=== PATIENT | female | born 1965 | race Caucasian/White ===

== ENCOUNTER 2017-05-30 16:50 | Emergency (ER) | payer MEDICAID ==
[~2017-05-30] VITALS: Ht 162.6 cm; Wt 102.1 kg
[~2017-05-30 16:50] MED LIST: ALBUPOW26; SOMA
[2017-05-30 17:05] VITALS: BP 166/91
[2017-05-30] MEDS ORDERED: IPRATROPIUM BROM 0.5 MG/2.5ML INH SOL NEB ONE (17:30)
[2017-05-30] MEDS ORDERED: ALBUTEROL SULF 2.5 MG/0.5ML(0.5%) NEB SOLN NEB ONE (17:30)
[2017-05-30 17:48] LABS: Basophils # (auto) 0 uL; Basophils % (auto) 0.7 % (0.0-2.0); Eosinophils # (auto) 0.3 uL; Eosinophils % (auto) 4.5 % (0.0-7.0); Hematocrit 42.5 % (36.0-46.0); Hemoglobin 14.9 g/dL (12.2-16.2); Lymphocytes # (auto) 2.1 uL; Lymphocytes % (auto) 34.9 % (10.0-50.0); Mean Corpuscular Hgb Conc. 35.1 g/dL (32.0-36.0); Mean Corpuscular Volume 88.4 fL (80.0-100.0); Monocytes # (auto) 0.4 uL; Monocytes % (auto) 5.8 % (0.0-12.0); Neutrophils # (auto) 3.3 uL; Neutrophils % (auto) 54.1 % (37.0-80.0); Nucleated Red Blood Cells % 0.1 %; Platelet Count (auto) 246 10^3/uL (140-450); Red Cell Distribution Width 13.8 % (11.6-16.0); White Blood Cell 6.1 10^3/uL (4.4-10.8)
[2017-05-30 18:13] LABS: Albumin 3.8 g/dL (3.4-5.0); BUN/Creatinine Ratio 15.5; Calcium 8.4 mg/dL (8.5-10.1); Potassium 3.7 mmol/L (3.5-5.1)
[2017-05-30 18:16] LABS: Bilirubin, Total 0.3 mg/dL (0.2-1.0); Total Protein 7.3 g/dL (6.4-8.2)
== END 2017-05-30 18:25 | disposition left against medical advice (07) ==
LOC: ER 16:54
DX: M79.671 Pain in right foot (principal); Z53.21 Procedure and treatment not carried out due to patient leaving prior to being seen by health care provider
CPT/HCPCS: 36415; 80053; 85025; 93005; 94640; J7030

== ENCOUNTER 2019-09-04 02:28 | Emergency (ER) | payer MEDICAID ==
[~2019-09-04] VITALS: Ht 162.6 cm; Wt 97.5 kg
[2019-09-04 02:42] VITALS: BP 137/93
[2019-09-04] MEDS ORDERED: ALBUTEROL SULF 2.5 MG/0.5ML(0.5%) NEB SOLN NEB ONE (04:15)
[2019-09-04] MEDS ORDERED: IPRATROPIUM BROM 0.5 MG/2.5ML INH SOL NEB ONE (04:15)
[2019-09-04] MEDS ORDERED: hydrOXYzine 25 MG TAB or CAP PO ONE (04:15)
== END 2019-09-04 05:27 | disposition home or self-care (01) ==
LOC: ER 02:33
DX: J45.909 Unspecified asthma, uncomplicated (principal); F41.8 Other specified anxiety disorders; F17.210 Nicotine dependence, cigarettes, uncomplicated; Z79.899 Other long term (current) drug therapy
CPT/HCPCS: 82962; 94640; 99283; J7611; J7644

== ENCOUNTER 2022-10-15 02:35 | Inpatient (IN) | payer MEDICAID ==
[~2022-10-15] VITALS: Ht 162.6 cm; Wt 97.7 kg
[2022-10-15 03:05] LABS: Basophils # (auto) 0.1 10 ^3/uL (0-0.2); Basophils % (auto) 0.5 % (0.0-2.0); Eosinophils # (auto) 0 10 ^3/uL (0-0.8); Eosinophils % (auto) 0.1 % (0.0-7.0); Hematocrit 41.7 % (36.0-46.0); Hemoglobin 13.7 g/dL (12.2-16.2); Lymphocytes # (auto) 1.2 10 ^3/uL (0.4-5.4); Mean Corpuscular Hemoglobin 27.9 pg (28.0-32.0); Mean Corpuscular Hgb Conc. 32.9 g/dL (32.0-36.0); Monocytes # (auto) 0.8 10 ^3/uL (0-1.3); Monocytes % (auto) 3.6 % (0.0-12.0); Neutrophils # (auto) 21.1 10 ^3/uL (1.6-8.6); Neutrophils % (auto) 90.8 % (37.0-80.0); Red Blood Cells 4.91 10^6/uL (4.0-5.20); Red Cell Distribution Width 13.5 % (11.8-14.3); White Blood Cell 23.2 10^3/uL (4.4-10.8)
[2022-10-15 03:21] LABS: Albumin 3.1 g/dL (3.4-5.0); BUN/Creatinine Ratio 12.5; Calcium 9.1 mg/dL (8.5-10.1); INR 0.97 (0.9-1.15); Magnesium 1.9 mg/dL (1.6-2.6); Potassium 3.8 mmol/L (3.5-5.1)
[2022-10-15 03:23] LABS: Bilirubin, Total 0.4 mg/dL (0.2-1.0); Total Protein 7.7 g/dL (6.4-8.2)
[2022-10-15] MEDS ORDERED: cefTRIAXone 1GM/50ML D5W 50 ML IV ONE (06:45)
[2022-10-15] MEDS ORDERED: AZITHROMYCIN 500MG/ 250ML 250 ML IV ONE (06:45)
[2022-10-15] MEDS ORDERED: SODIUM CHLORIDE 0.9% 1,000 ML IV ONE (11:15)
[2022-10-15] MEDS ORDERED: NITROGLYCERIN 0.4 MG SL TAB SL PRN (11:15)
[2022-10-15] MEDS: SODIUM CHLORIDE 0.9% 1,000 ML IV SCH ×2 (11:55→21:15)
[2022-10-15] MEDS: MORPHINE SULFATE 4 MG/ML SYR/VIAL IV PRN ×2 (13:24→18:06)
[2022-10-15] MEDS: metroNIDAZOLE 500MG/100ML 100 ML IV SCH ×2 (14:10→21:45)
[2022-10-15] MEDS: ONDANSETRON HCL 4 MG/2 ML VIAL IV PRN (15:11)
[2022-10-15 15:48] LABS: Urine Bacteria FEW /hpf (None Seen); Urine Blood Negative /uL (Negative); Urine Hyaline Cast MOD /lpf (0 - 2); Urine Mucus FEW (None Seen); Urine Specific Gravity 1.024 (1.001-1.035); Urine WBC 169 /hpf (0 - 5)
[2022-10-15] MEDS: ACETAMINOPHEN 325 MG TAB PO PRN (19:20)
[2022-10-15] MEDS: ATORVASTATIN 20 MG TAB PO SCH (21:44)
[2022-10-15] MEDS: METOPROLOL TARTRATE 25 MG TAB PO SCH (21:45)
[2022-10-16] MEDS: ACETAMINOPHEN 325 MG TAB PO PRN ×2 (00:50→10:49)
[2022-10-16] MEDS: MORPHINE SULFATE 4 MG/ML SYR/VIAL IV PRN (02:30)
[2022-10-16 05:13] LABS: Basophils # (auto) 0.1 10 ^3/uL (0-0.2); Basophils % (auto) 0.2 % (0.0-2.0); Eosinophils # (auto) 0 10 ^3/uL (0-0.8); Eosinophils % (auto) 0.1 % (0.0-7.0); Hematocrit 33.8 % (36.0-46.0); Hemoglobin 11.4 g/dL (12.2-16.2); Lymphocytes # (auto) 1.1 10 ^3/uL (0.4-5.4); Lymphocytes % (auto) 4.8 % (10.0-50.0); Mean Corpuscular Hemoglobin 28.7 pg (28.0-32.0); Mean Corpuscular Hgb Conc. 33.7 g/dL (32.0-36.0); Mean Corpuscular Volume 85.1 fL (80.0-100.0); Monocytes % (auto) 4.5 % (0.0-12.0); Neutrophils # (auto) 20.6 10 ^3/uL (1.6-8.6); Neutrophils % (auto) 90.4 % (37.0-80.0); Red Blood Cells 3.97 10^6/uL (4.0-5.20); Red Cell Distribution Width 13.4 % (11.8-14.3); White Blood Cell 22.8 10^3/uL (4.4-10.8)
[2022-10-16 05:38] LABS: Albumin 2.7 g/dL (3.4-5.0); Calcium 8.3 mg/dL (8.5-10.1); Potassium 4.3 mmol/L (3.5-5.1)
[2022-10-16 05:42] LABS: BUN/Creatinine Ratio 19.2; Bilirubin, Total 0.6 mg/dL (0.2-1.0); Total Protein 6.4 g/dL (6.4-8.2)
[2022-10-16] MEDS: metroNIDAZOLE 500MG/100ML 100 ML IV SCH ×3 (06:20→22:00)
[2022-10-16] MEDS: METOPROLOL TARTRATE 25 MG TAB PO SCH ×3 (10:00→22:00)
[2022-10-16] MEDS: SODIUM CHLORIDE 0.9% 1,000 ML IV SCH (10:50)
[2022-10-16] MEDS: ASPirin 81 mg TAB PO SCH (10:50)
[2022-10-16] MEDS: PANTOPRAZOLE 40 MG/10 ML VIAL INJ IV SCH (11:06)
[2022-10-16] MEDS: DOCUSATE SOD 100 MG CAP PO SCH (11:06)
[2022-10-16] MEDS ORDERED: OMNIPAQUE ORAL SOLN 500ml 12mg/ml PO ONE (14:38)
[2022-10-16] MEDS ORDERED: GASTROGRAFIN 30 ML SOL ONE (15:14)
[2022-10-16 15:16] VITALS: BP 117/69
[2022-10-16] MEDS: D5W/SOD CHLO 0.9% 1,000 ML IV SCH ×2 (16:22→22:30)
[2022-10-16] MEDS: ONDANSETRON HCL 4 MG/2 ML VIAL IV PRN (16:22)
[2022-10-16] MEDS: MORPHINE SULFATE INJ 2 MG/ml SYRG IV PRN ×2 (16:24→22:46)
[2022-10-16] MEDS ORDERED: ALBUTEROL MEDNEB 2.5 mg/3ml NEB ONE (18:07)
[2022-10-16] MEDS: ALBUTEROL SULF 2.5 MG/0.5ML(0.5%) NEB SOLN NEB SCH (19:21)
[2022-10-16] MEDS ORDERED: IOHEXOL 300 MG/ML 100ML BOTTLE IJ ONE (21:27)
[2022-10-16 22:00] VITALS: BP 126/79
[2022-10-16] MEDS: ATORVASTATIN 20 MG TAB PO SCH (22:00)
[2022-10-17 00:05] VITALS: BP 126/79
[2022-10-17 05:00] VITALS: BP 117/65
[2022-10-17] MEDS ORDERED: ALBUTEROL MEDNEB 2.5 mg/3ml NEB ONE ×3 (05:23→17:54)
[2022-10-17] MEDS: D5W/SOD CHLO 0.9% 1,000 ML IV SCH ×3 (05:49→22:30)
[2022-10-17] MEDS: metroNIDAZOLE 500MG/100ML 100 ML IV SCH ×3 (05:50→22:00)
[2022-10-17 06:18] LABS: Basophils # (auto) 0 10 ^3/uL (0-0.2); Basophils % (auto) 0.2 % (0.0-2.0); Eosinophils # (auto) 0.1 10 ^3/uL (0-0.8); Eosinophils % (auto) 0.3 % (0.0-7.0); Hematocrit 30.7 % (36.0-46.0); Hemoglobin 10.2 g/dL (12.2-16.2); Lymphocytes # (auto) 1.1 10 ^3/uL (0.4-5.4); Mean Corpuscular Hemoglobin 28.3 pg (28.0-32.0); Mean Corpuscular Hgb Conc. 33.1 g/dL (32.0-36.0); Mean Corpuscular Volume 85.7 fL (80.0-100.0); Monocytes # (auto) 0.8 10 ^3/uL (0-1.3); Neutrophils # (auto) 16.9 10 ^3/uL (1.6-8.6); Neutrophils % (auto) 89.5 % (37.0-80.0); Nucleated Red Blood Cells % 0.1 %; Red Blood Cells 3.59 10^6/uL (4.0-5.20); Red Cell Distribution Width 13.4 % (11.8-14.3); White Blood Cell 18.9 10^3/uL (4.4-10.8)
[2022-10-17] MEDS: ALBUTEROL SULF 2.5 MG/0.5ML(0.5%) NEB SOLN NEB SCH ×3 (06:19→18:12)
[2022-10-17 06:34] LABS: Albumin 2.4 g/dL (3.4-5.0); BUN/Creatinine Ratio 20.3; Bilirubin, Total 0.7 mg/dL (0.2-1.0); Calcium 8.4 mg/dL (8.5-10.1); Total Protein 6.6 g/dL (6.4-8.2)
[2022-10-17 08:00] VITALS: BP 94/44
[2022-10-17] MEDS: ASPirin 81 mg TAB PO SCH (09:50)
[2022-10-17] MEDS: DOCUSATE SOD 100 MG CAP PO SCH (09:50)
[2022-10-17] MEDS: cefTRIAXone 1GM/50ML D5W 50 ML IV SCH (09:50)
[2022-10-17] MEDS: PANTOPRAZOLE 40 MG/10 ML VIAL INJ IV SCH (09:50)
[2022-10-17] MEDS: METOPROLOL TARTRATE 25 MG TAB PO SCH ×2 (09:51→22:00)
[2022-10-17 12:00] VITALS: BP 115/62
[2022-10-17] MEDS ORDERED: LACTULOSE 20Gm/30ML SOLN PO ONE (13:15)
[2022-10-17] MEDS ORDERED: SENNA 8.6 MG TAB PO ONE ×2 (13:15→22:00)
[2022-10-17] MEDS: MORPHINE SULFATE INJ 2 MG/ml SYRG IV PRN ×2 (13:27→20:48)
[2022-10-17 16:00] VITALS: BP 120/66
[2022-10-17 16:46] LABS: Urine Bacteria FEW /hpf (None Seen); Urine Blood Negative /uL (Negative); Urine Mucus FEW (None Seen); Urine Specific Gravity 1.029 (1.001-1.035); Urine WBC 20 /hpf (0 - 5)
[2022-10-17 17:10] LABS: Alcohol, Urine < 3.0 mg/dL (0-10); Amphetamine Screen, Urine POSITIVE (NEGATIVE); Barbiturate Scree,Urine NEGATIVE (NEGATIVE); Benzodiazephine Screen, Urine NEGATIVE (NEGATIVE); Cannabinoid Screen, Urine NEGATIVE (NEGATIVE); Cocaine Screen, Urine NEGATIVE (NEGATIVE)
[2022-10-17 17:18] LABS: Opiate Scree,Urine POSITIVE (NEGATIVE); Phencyclidine Screen, Urine NEGATIVE (NEGATIVE)
[2022-10-17 22:00] VITALS: BP 117/73
[2022-10-17] MEDS: ATORVASTATIN 20 MG TAB PO SCH (22:00)
[2022-10-18] MEDS: MORPHINE SULFATE INJ 2 MG/ml SYRG IV PRN ×3 (00:47→09:48)
[2022-10-18 05:00] VITALS: BP 108/65
[2022-10-18] MEDS ORDERED: ALBUTEROL MEDNEB 2.5 mg/3ml NEB ONE ×3 (06:11→17:38)
[2022-10-18] MEDS: metroNIDAZOLE 500MG/100ML 100 ML IV SCH ×3 (06:20→21:27)
[2022-10-18] MEDS: D5W/SOD CHLO 0.9% 1,000 ML IV SCH ×3 (06:30→21:30)
[2022-10-18 06:41] LABS: INR 1.09 (0.9-1.15); Partial Thromboplastin Time 29.7 sec (24.6-33.4)
[2022-10-18 06:42] LABS: Calcium 7.7 mg/dL (8.5-10.1); Potassium 3.9 mmol/L (3.5-5.1)
[2022-10-18 06:48] LABS: Albumin 2.2 g/dL (3.4-5.0); BUN/Creatinine Ratio 15.4; Basophils # (auto) 0 10 ^3/uL (0-0.2); Basophils % (auto) 0.3 % (0.0-2.0); Bilirubin, Total 0.8 mg/dL (0.2-1.0); Eosinophils # (auto) 0.1 10 ^3/uL (0-0.8); Eosinophils % (auto) 1.3 % (0.0-7.0); Hematocrit 29.8 % (36.0-46.0); Lymphocytes # (auto) 1.2 10 ^3/uL (0.4-5.4); Lymphocytes % (auto) 11.1 % (10.0-50.0); Mean Corpuscular Hemoglobin 28.7 pg (28.0-32.0); Mean Corpuscular Hgb Conc. 33.7 g/dL (32.0-36.0); Mean Corpuscular Volume 85.3 fL (80.0-100.0); Monocytes # (auto) 0.7 10 ^3/uL (0-1.3); Monocytes % (auto) 6.6 % (0.0-12.0); Neutrophils # (auto) 8.9 10 ^3/uL (1.6-8.6); Neutrophils % (auto) 80.7 % (37.0-80.0); Nucleated Red Blood Cells % 0.1 %; Red Blood Cells 3.49 10^6/uL (4.0-5.20); Red Cell Distribution Width 13.1 % (11.8-14.3); Total Protein 5.8 g/dL (6.4-8.2)
[2022-10-18] MEDS: ALBUTEROL SULF 2.5 MG/0.5ML(0.5%) NEB SOLN NEB SCH ×3 (06:51→17:43)
[2022-10-18 08:00] VITALS: BP 103/55
[2022-10-18] MEDS: cefTRIAXone 1GM/50ML D5W 50 ML IV SCH (09:47)
[2022-10-18] MEDS: ASPirin 81 mg TAB PO SCH (09:47)
[2022-10-18] MEDS: PANTOPRAZOLE 40 MG/10 ML VIAL INJ IV SCH (09:47)
[2022-10-18] MEDS: DOCUSATE SOD 100 MG CAP PO SCH (09:48)
[2022-10-18] MEDS: METOPROLOL TARTRATE 25 MG TAB PO SCH ×2 (09:48→21:28)
[2022-10-18] MEDS ORDERED: LIDOCAINE VISCOUS 2% 15ML UD ONE (12:11)
[2022-10-18] MEDS ORDERED: NALOXONE HCL 0.4 MG/ML VIAL ONE (12:11)
[2022-10-18] MEDS ORDERED: MIDAZOLAM HCL 2MG/2ML 2ml VIAL (1mg/ml) ONE ×2 (12:11→12:12)
[2022-10-18] MEDS ORDERED: FLUMAZENIL 0.1 MG/ML INJ 10ML MDV IV ONE (12:11)
[2022-10-18] MEDS ORDERED: diphenhdrAMINE HCL 50 MG/1 ML VL ONE (12:11)
[2022-10-18] MEDS: fentaNYL CITRATE 100 MCG/2 ML VL ONE ×2 (12:24→12:27)
[2022-10-18] MEDS ORDERED: MORPHINE SULFATE INJ 2 MG/ml SYRG IV PRN (12:30)
[2022-10-18 16:00] VITALS: BP 109/70
[2022-10-18] MEDS: HYDROcodone-ACET 5/325MG TAB PO PRN (18:06)
[2022-10-18] MEDS: ATORVASTATIN 20 MG TAB PO SCH (21:28)
[2022-10-18 22:00] VITALS: BP 106/60
[2022-10-19] MEDS: HYDROcodone-ACET 5/325MG TAB PO PRN ×3 (01:11→14:02)
[2022-10-19 05:00] VITALS: BP 101/68
[2022-10-19] MEDS: metroNIDAZOLE 500MG/100ML 100 ML IV SCH (05:04)
[2022-10-19] MEDS ORDERED: ALBUTEROL MEDNEB 2.5 mg/3ml NEB ONE ×2 (05:34→11:03)
[2022-10-19] MEDS: D5W/SOD CHLO 0.9% 1,000 ML IV SCH (06:30)
[2022-10-19] MEDS: ALBUTEROL SULF 2.5 MG/0.5ML(0.5%) NEB SOLN NEB SCH ×2 (06:36→11:35)
[2022-10-19 09:00] VITALS: BP 113/64
[2022-10-19] MEDS: PANTOPRAZOLE 40 MG/10 ML VIAL INJ IV SCH (10:31)
[2022-10-19] MEDS: DOCUSATE SOD 100 MG CAP PO SCH (10:31)
[2022-10-19] MEDS: ASPirin 81 mg TAB PO SCH (10:31)
[2022-10-19] MEDS: cefTRIAXone 1GM/50ML D5W 50 ML IV SCH (10:31)
[2022-10-19] MEDS: METOPROLOL TARTRATE 25 MG TAB PO SCH (10:32)
[2022-10-19 13:00] VITALS: BP 122/72
[2022-10-19] MEDS ORDERED: CARI-277 PO ×2 (14:41→14:43)
[2022-10-19] MEDS ORDERED: ATOR20TA50 PO (14:42)
[2022-10-19] MEDS ORDERED: CEL100T PO (14:42)
[2022-10-19] MEDS ORDERED: PANT40T PO (14:42)
[2022-10-19] MEDS ORDERED: HYDR-4902 PO (14:45)
[2022-10-19 16:34] VITALS: BP 122/72
[2022-10-19] MEDS ORDERED: CELECOXIB 100 MG CAP PO SCH (22:00)
[2022-10-19] MEDS ORDERED: PANTOPRAZOLE 40 MG TAB PO SCH (22:00)
== END 2022-10-19 18:13 | disposition home or self-care (01) | DRG 241 ==
LOC: ER 02:35 → TELE 11:14 → TELE-CENTR 10-16 20:00
PROVIDERS: ADMIT Nurse Practitioner Family; ATTEND Hospitalist
PROC: 0DB78ZX Excision of Stomach, Pylorus, Via Natural or Artificial Opening Endoscopic, Diagnostic (ICD-10-PCS; principal; 2022-10-18 12:20)
DX: K29.70 Gastritis, unspecified, without bleeding (principal); K85.90 Acute pancreatitis without necrosis or infection, unspecified; Z20.822 Contact with and (suspected) exposure to COVID-19; R00.0 Tachycardia, unspecified; K59.00 Constipation, unspecified; E66.01 Morbid (severe) obesity due to excess calories; B96.81 Helicobacter pylori [H. pylori] as the cause of diseases classified elsewhere; F17.210 Nicotine dependence, cigarettes, uncomplicated; I10 Essential (primary) hypertension; Z71.6 Tobacco abuse counseling; Z82.49 Family history of ischemic heart disease and other diseases of the circulatory system; Z68.34 Body mass index [BMI] 34.0-34.9, adult
CPT/HCPCS: 36415; 43239; 71045; 74176; 74177; 76705; 80053; 80307; 81001; 83605; 83615; 83690; 83735; 83880; 84100; 84484; 85025; 85379; 85610; 85730; 87040; 87086; 87426; 93005; 93306; 94640; 96365; 96366; 96368; C9113; G0378; J0696; J2250; J2405; J3490; J7042; J7060

== ENCOUNTER 2023-02-19 03:19 | Emergency (ER) | payer MEDICAID ==
[~2023-02-19] VITALS: Ht 160 cm; Wt 81.0 kg
[~2023-02-19 03:19] MED LIST changes: -ALBUPOW26; +ATOR20TA50 PO; +CARI-277 PO; +CEL100T PO; +HYDR-4902 PO; +PANT40T PO; -SOMA
[2023-02-19] MEDS ORDERED: KETOROLAC TROMETH 30 MG/ML 1ML VIAL IM ONE (04:45)
[2023-02-19 04:46] VITALS: BP 158/80
[2023-02-19] MEDS ORDERED: CEPH500C PO (04:53)
[2023-02-19] MEDS ORDERED: SULF400T11 PO (04:53)
[2023-02-19] MEDS ORDERED: LISI10TA34 PO (04:53)
== END 2023-02-19 04:59 | disposition home or self-care (01) ==
LOC: ER 03:19
DX: L02.31 Cutaneous abscess of buttock (principal); L03.317 Cellulitis of buttock; R51.9 Headache, unspecified; J45.909 Unspecified asthma, uncomplicated; I10 Essential (primary) hypertension; F17.210 Nicotine dependence, cigarettes, uncomplicated
CPT/HCPCS: 96372; 99283; J1885

== ENCOUNTER 2023-11-02 19:32 | Emergency (ER) | payer MEDICAID ==
[~2023-11-02 19:32] MED LIST changes: +CEPH500C PO; +LISI10TA34 PO; +SULF400T11 PO
== END 2023-11-02 20:33 | disposition left against medical advice (07) ==
LOC: ER 19:32
DX: R06.02 Shortness of breath (principal); J02.9 Acute pharyngitis, unspecified; Z53.21 Procedure and treatment not carried out due to patient leaving prior to being seen by health care provider

== ENCOUNTER 2024-01-22 09:25 | Inpatient (IN) | payer MEDICAID ==
[~2024-01-22] VITALS: Ht 162.6 cm; Wt 91.0 kg
[2024-01-22 10:00] LABS: Hematocrit 47.7 % (36.0-46.0); Hemoglobin 15.3 g/dL (12.2-16.2); Mean Corpuscular Hemoglobin 28.1 pg (28.0-32.0); Mean Corpuscular Hgb Conc. 32.1 g/dL (32.0-36.0); Mean Corpuscular Volume 87.3 fL (80.0-100.0); Red Blood Cells 5.47 10^6/uL (4.0-5.20); Red Cell Distribution Width 14.4 % (11.8-14.3); White Blood Cell 28.8 10^3/uL (4.4-10.8)
[2024-01-22 10:07] LABS: Basophils % (manual) 0 (0.0-2.0); Blast Cells 0; Eosinophils % (manual) 0 (0-7); Metamyelocytes % 0; Myelocytes % 0; Promyelocytes % 0; Reactive Lymphocytes 0
[2024-01-22 10:10] VITALS: PULSE 109; RESP 33; O2SAT 99
[2024-01-22 10:14] LABS: Band Neutrophils % (manual) 2; Lymphocytes % (manual) 6 (10.0-50.0); Monocytes % (manual) 3 (0-12); Platelet Estimate Adequate; RBC Morphology Normal
[2024-01-22 10:16] LABS: Alanine Aminotransferase 25 U/L (7-40); Albumin 4.2 g/dL (3.2-4.8); Alkaline Phosphatase 106 U/L (46-116); Anion Gap 9 (5-15); Aspartate Aminotransferase 56 U/L (13-40); BUN/Creatinine Ratio 15.3 (10.0-20.0); Bilirubin, Total 0.7 mg/dL (0.2-1.0); Blood Urea Nitrogen 11 mg/dL (9-23); Calcium 9.7 mg/dL (8.5-10.1); Carbon Dioxide 24 mmol/L (20-30); Chloride 99 mmol/L (98-107); Glucose 94 mg/dL (74-106); Potassium 4.1 mmol/L (3.5-5.1); Sodium 132 mmol/L (136-145); Total Protein 7.8 g/dL (5.7-8.2)
[2024-01-22] MEDS: ASPirin 81 mg TAB PO ONE (10:16)
[2024-01-22] MEDS: cefTRIAXone 1GM/50ML D5W 50 ML IV ONE (11:00)
[2024-01-22] MEDS: SODIUM CHLORIDE 0.9% 1,000 ML IV ONE (11:00)
[2024-01-22 11:12] LABS: INR 1.02 (0.9-1.15); Partial Thromboplastin Time 27.1 SEC (24.5-34.5); Prothrombin Time 10.8 sec (9.3-11.8)
[2024-01-22] MEDS ORDERED: MORPHINE SULFATE INJ 2 MG/ml SYRG IV PRN (14:15)
[2024-01-22] MEDS ORDERED: NITROGLYCERIN 0.4 MG SL TAB SL PRN (14:15)
[2024-01-22] MEDS ORDERED: hydrALAZINE HCL 20 MG/ML VL IV PRN (14:15)
[2024-01-22] MEDS ORDERED: ALBUTEROL SULF 2.5 MG/0.5ML(0.5%) NEB SOLN NEB PRN (15:00)
[2024-01-22] MEDS ORDERED: IPRATROPIUM BROM 0.5 MG/2.5ML INH SOL NEB PRN (15:00)
[2024-01-22 15:13] LABS: Triglycerides 96 mg/dL (< 150)
[2024-01-22 15:14] LABS: LDL Cholesterol 63 mg/dL (< 100)
[2024-01-22 15:15] LABS: Cholesterol 127 mg/dL (< 200); HDL Cholesterol 41 mg/dL (40-59)
[2024-01-22 15:18] VITALS: BP 153/88; PULSE 112; RESP 25; TEMP 98.2; O2SAT 96
[2024-01-22] MEDS: SOD CHL 0.45% 1,000 ML IV SCH (15:29)
[2024-01-22] MEDS: AZITHROMYCIN 500MG/ 250ML 250 ML IV ONE (15:29)
[2024-01-22] MEDS: NICOTINE 7MG/24HR TOPICAL PATCH TD ONE (16:39)
[2024-01-22] MEDS: methylPREDNISolone SOD SUCC 125 MG/2 ML VL IV SCH (16:39)
[2024-01-22 17:07] LABS: Urine Bacteria FEW /hpf (None Seen); Urine Blood 1+ /uL (Negative); Urine Clarity Turbid (Clear); Urine Color Yellow (Yellow); Urine Mucus FEW (None Seen); Urine Protein, UAD 2+ (Negative); Urine Specific Gravity 1.027 (1.001-1.035); Urine Urobilinogen Normal (Negative); Urine WBC 42 /hpf (0 - 5)
[2024-01-22 17:19] LABS: Amphetamine Screen, Urine Pos (NEGATIVE); Barbiturate Scree,Urine Neg (NEGATIVE); Benzodiazephine Screen, Urine Neg (NEGATIVE); Cannabinoid Screen, Urine Pos (NEGATIVE); Cocaine Screen, Urine Neg (NEGATIVE); Opiate Scree,Urine Neg (NEGATIVE); Phencyclidine Screen, Urine Neg (NEGATIVE)
[2024-01-22 18:24] LABS: COVID19 ANTIGEN SOFIA FIA NEGATIVE (NEGATIVE)
[2024-01-22 18:58] VITALS: PULSE 102; RESP 24; O2SAT 95
[2024-01-22] MEDS: IPRATROPIUM BROM 0.5 MG/2.5ML INH SOL NEB SCH (19:01)
[2024-01-22] MEDS: ALBUTEROL SULF 2.5 MG/0.5ML(0.5%) NEB SOLN NEB SCH (19:01)
[2024-01-22 19:05] VITALS: PULSE 111; RESP 24; O2SAT 98
[2024-01-22] MEDS: CELECOXIB 100 MG CAP PO SCH (22:33)
[2024-01-22] MEDS: ATORVASTATIN 20 MG TAB PO SCH (22:33)
[2024-01-22 22:34] VITALS: PULSE 77; RESP 20; O2SAT 98
[2024-01-22 22:42] VITALS: PULSE 78; RESP 24; O2SAT 98
[2024-01-23 00:03] VITALS: BP 100/66; PULSE 77; RESP 24; TEMP 97.5; O2SAT 96
[2024-01-23 01:00] VITALS: BP 100/66; PULSE 77; RESP 24; TEMP 97.5; O2SAT 96
[2024-01-23 02:29] VITALS: PULSE 78; RESP 19; O2SAT 93
[2024-01-23 02:37] VITALS: PULSE 74; RESP 20; O2SAT 99
[2024-01-23 05:00] VITALS: BP 108/69; PULSE 75; RESP 19; TEMP 97.7; O2SAT 94
[2024-01-23] MEDS ORDERED: cefTRIAXone 1GM/50ML D5W 50 ML IV SCH (09:00)
[2024-01-23] MEDS ORDERED: NICOTINE 7MG/24HR TOPICAL PATCH TD SCH (10:00)
[2024-01-23] MEDS ORDERED: LISINOPRIL 5 MG TAB PO SCH (10:00)
[2024-01-23] MEDS ORDERED: AZITHROMYCIN 500MG/ 250ML 250 ML IV SCH (10:00)
[2024-01-23] MEDS ORDERED: ENOXAPARIN SOD 40 MG/0.4 ML SYRINGE SC SCH (10:00)
[2024-01-23] MEDS ORDERED: ASPirin 81 mg TAB PO SCH (10:00)
== END 2024-01-23 07:50 | disposition left against medical advice (07) | DRG 133 ==
LOC: ER 09:25 → TELE 14:48 → TELE-CENTR 23:26
PROVIDERS: ADMIT Registered Nurse; ATTEND Registered Nurse
DX: J96.20 Acute and chronic respiratory failure, unspecified whether with hypoxia or hypercapnia (principal); J18.9 Pneumonia, unspecified organism; I10 Essential (primary) hypertension; F15.10 Other stimulant abuse, uncomplicated; E66.9 Obesity, unspecified; F17.210 Nicotine dependence, cigarettes, uncomplicated; Z20.822 Contact with and (suspected) exposure to COVID-19; J44.0 Chronic obstructive pulmonary disease with (acute) lower respiratory infection; Z98.51 Tubal ligation status; Z68.34 Body mass index [BMI] 34.0-34.9, adult
CPT/HCPCS: 36415; 71045; 80053; 80061; 80307; 81001; 83036; 83605; 84443; 84484; 85007; 85027; 85610; 85730; 87040; 87426; 93005; 94640; 96365; G0378